=== PATIENT | female | born 1995 | race Caucasian/White ===

== ENCOUNTER → 2022-02-24 | Outpatient (REF) | payer BC | LOC: M LAB REF 16:18 | PROVIDERS: ATTEND Student in an Organized Health Care Education/Training Program | DX: J02.9 Acute pharyngitis, unspecified (principal) ==

== ENCOUNTER 2022-11-17 08:23 | Emergency (ER) | payer BC ==
[~2022-11-17] VITALS: Ht 152.4 cm; Wt 96.7 kg
[2022-11-17] MEDS ORDERED: NS 1,000 ML IV ONE (10:15)
[2022-11-17] MEDS ORDERED: ONDANSETRON 4MG 2ML VIAL IV ONE (10:15)
[2022-11-17 11:05] LABS: BASO % 0.3 % (0.0-1.0); EOS # 0.1 10^3/uL (0.0-0.5); HEMATOCRIT 43.7 % (36.0-47.0); HEMOGLOBIN 14.7 g/dl (12.0-15.5); LYMPH # 1.8 10^3/uL (1.5-5.0); LYMPH % 12.8 % (24.0-44.0); MEAN CORPUSCULAR HEMOGLOBIN 30.6 pg (27.0-33.0); MEAN CORPUSCULAR HGB CONC 33.6 g/dl (32.0-36.5); MEAN CORPUSCULAR VOLUME 90.9 fl (80.0-96.0); MONO # 0.5 10^3/uL (0.0-0.8); MONO % 3.6 % (2.0-8.0); NEUTROPHILS # 11.4 10^3/uL (1.5-8.5); NEUTROPHILS % 81.1 % (36.0-66.0); PLATELET COUNT, AUTOMATED 287 10^3/uL (150-450); RED BLOOD COUNT 4.81 10^6/uL (4.00-5.40)
[2022-11-17] MEDS ORDERED: KETOROLAC 30 MG/ML 1ML VIAL IV ONE (11:25)
[2022-11-17 11:28] LABS: LIPASE 24 U/L (12-53)
[2022-11-17 11:31] LABS: ALBUMIN 4.3 G/DL (3.2-5.2); ALKALINE PHOSPHATASE 40 U/L (46-116); ALT/SGPT 26 U/L (7.0-40); AST/SGOT 19 U/L (<34); BILIRUBIN,DIRECT 0.2 MG/DL (<0.4); BILIRUBIN,TOTAL 0.6 MG/DL (0.3-1.2); BLOOD UREA NITROGEN 10 MG/DL (9-23); CALCIUM LEVEL 9.3 MG/DL (8.5-10.1); CARBON DIOXIDE LEVEL 25 MMOL/L (20-31); CHLORIDE LEVEL 105 MMOL/L (98-107); CREATININE FOR GFR 0.66 MG/DL (0.55-1.30); GLOMERULAR FILTRATION RATE > 60.0 (>60); GLUCOSE, FASTING 119 MG/DL (60-100); POTASSIUM SERUM 4.3 MMOL/L (3.5-5.1); SODIUM LEVEL 136 MMOL/L (136-145); TOTAL PROTEIN 7.5 G/DL (5.7-8.2)
[2022-11-17] MEDS ORDERED: ISOVUE-370 76% 100ML VIAL As Ordered ONE (11:39)
[2022-11-17] MEDS ORDERED: PROMETHAZINE 25MG/ML 1ML VIAL IV ONE (11:55)
[2022-11-17] MEDS ORDERED: MORPHINE 4 MG/ML 1ML VIAL IV ONE (12:35)
[2022-11-17] MEDS ORDERED: PANTOPRAZOLE 40MG VIAL IV ONE (12:35)
[2022-11-17] MEDS ORDERED: IBUP-1022 PO ×2 (13:27→13:40)
[2022-11-17] MEDS ORDERED: PEPC1TAB5 PO ×2 (13:27→13:40)
[2022-11-17] MEDS ORDERED: ONDA4TAB6 PO ×2 (13:27→13:40)
[2022-11-17 13:53] VITALS: BP 116/52
== END 2022-11-17 14:40 | disposition home or self-care (01) ==
LOC: M ED 08:23
DX: R11.2 Nausea with vomiting, unspecified (principal); R10.9 Unspecified abdominal pain; F17.200 Nicotine dependence, unspecified, uncomplicated; F12.90 Cannabis use, unspecified, uncomplicated
CPT/HCPCS: 74177; 80048; 80076; 81001; 83690; 84702; 85025; 96374; 96375; 99284; C9113; J1885; J2405; J2550; Q9967